=== PATIENT | male | born 1935 | race Caucasian/White ===

== ENCOUNTER 2016-05-18 09:23 | Inpatient (IN) | payer MEDICARE, OTHER ==
[~2016-05-18 09:23] MED LIST: ATENOLOL50 MG; AVANDIA4 MG; ECOTRIN325 MG; FELODIPINE ER5 MG; FUROSEMIDE20 MG; GLYBURIDE2.5 MG; LISINOPRIL40 MG; POTASSIUM CHLO10 MEQ; STOOL SOFTENER100 MG; ZETIA10 MG; ZOCOR80 MG
[2016-05-18] MEDS ORDERED: ASPIRIN EC81 MG PO (09:48)
[2016-05-18] MEDS ORDERED: VITAMIN D1000 UNI3 PO (09:48)
[2016-05-18] MEDS ORDERED: NAMENDA10 M1 PO (09:49)
[2016-05-18] MEDS ORDERED: ARICEPT10 M2 PO (09:49)
[2016-05-18] MEDS ORDERED: GLYBURIDE PO (09:50)
[2016-05-18] MEDS ORDERED: POTASSIUM CHLO10 ME2 PO (09:51)
[2016-05-18] MEDS ORDERED: ICAPS TABLET1 EACH PO (09:51)
[2016-05-18] MEDS ORDERED: FISH OIL 1,0001 EA10 PO (09:51)
[2016-05-18] MEDS ORDERED: PRAVASTATIN SOD20 M1 PO (09:52)
[2016-05-18] MEDS ORDERED: VITAMIN B12 PO (09:52)
[2016-05-18] MEDS ORDERED: LABETALOL HCL100 M1 PO (09:53)
[2016-05-18] MEDS ORDERED: PRINIVIL20 M1 PO (09:53)
[2016-05-18] MEDS ORDERED: LASIX40 M1 PO (09:53)
[2016-05-18] MEDS ORDERED: GLUCOPHAGE500 M3 PO (09:54)
[2016-05-18] MEDS ORDERED: TYLENOL325 M2 PO (09:54)
[2016-05-18 10:29] LABS: BASO % 0.1 % (0-2); EOS % 0.1 % (0-7); HCT-HEMATOCRIT 28.9 % (36.0-53.5); HGB-HEMOGLOBIN 9.3 gm/dl (13.5-17.0); IMMATURE GRANULOCYTES ABSOLUTE 0.03 tho/cmm (0-0.03); IMMATURE GRANULOCYTES PERCENT 0.3 % (0-0.3); LYMPH % 5.1 % (20-45); LYMPH ABSOLUTE COUNT 0.6 tho/cmm (0.8-4.5); MCH (MEAN CORPUSCULAR HGB) 26.1 pg (28.0-32.0); MCHC MEAN CORPUSCULAR HGB CONC 32.2 % (32.0-36.0); MEAN PLATELET VOLUME 9.3 cmc (9.4-12.4); MONO % 13.1 % (0-12); MONOCYTE ABSOLUTE COUNT 1.5 tho/cmm (0.0-1.2); NEUTROPHIL ABSOLUTE COUNT 9.3 tho/cmm (1.6-8.0); NEUTROPHIL-AUTOMATED 9.3 tho/cmm (1.6-8.0); NEUTROPHILS % 81.3 % (40-80); PLATELET COUNT 158 tho/cmm (150-450); RED BLOOD COUNT 3.57 mil/cmm (4.40-5.70); RED CELL DISTRIBUTION WIDTH 15.7 % (12.4-16.4); WHITE BLOOD COUNT 11.5 tho/cmm (4.0-10.0)
[2016-05-18 10:55] LABS: ALB/GLOB RATIO 0.8 (0.8-2.0); ALBUMIN 3.3 g/dl (3.5-5.0); ALKALINE PHOSPHATASE 78 U/L (33-138); ALT/SGPT 16 U/L (12-78); ANION GAP 15 mmol/L (0-20); AST/SGOT 22 U/L (10-40); BLOOD UREA NITROGEN 35 mg/dl (6-24); CALCIUM 8.6 mg/dl (8.5-10.5); CARBON DIOXIDE-VENOUS 23 mmol/L (22-32); CHLORIDE 103 mmol/l (96-110); CREATININE 1.22 mg/dl (0.60-1.30); GLUCOSE 155 mg/dL (70-110); POTASSIUM 3.9 mmol/L (3.7-5.1); SODIUM 137 mmol/L (135-145); eGFR VALUE FOR BLACK 63 mL/Min
[2016-05-18 11:14] LABS: PROCALCITONIN 0.86 ng/ml (0.05-0.09)
[2016-05-18] MEDS ORDERED: [UNRECOGNIZED DRUG - REMARK] (11:37)
[2016-05-18 14:04] LABS: URINE BILIRUBIN NEGATIVE (NEG); URINE BLOOD SMALL (NEG); URINE GLUCOSE (UA) NEGATIVE (NEG); URINE KETONE MODERATE (NEG); URINE LEUKOCYTE ESTERASE NEGATIVE (NEG); URINE NITRITE NEGATIVE (NEG); URINE PROTEIN SMALL (NEG); URINE SPECIFIC GRAVITY 1.015 (1.003-1.030)
[2016-05-18 14:04] LABS: INR 1.1 INR (0.9-1.1); PROTHROMBIN TIME 12.9 SECONDS (9.0-13.6)
[2016-05-18 14:05] LABS: URINE APPEARANCE CLEAR; URINE COLOR YELLOW
[2016-05-18 14:13] LABS: URINE AMORPHOUS 1+; URINE EPITHELIAL CELLS 0 /[HPF] (0-10); URINE RBC 0 /[HPF] (0-5); URINE WBC 0 /[HPF] (0-5)
[2016-05-18 16:23] LABS: ABG CO2 ARTERIAL 24 mmol/L (21-27); ARTERIAL BLD GAS O2 SATURATION 88 % (95-98); ARTERIAL BLOOD GAS PCO2 33 mmHg (32-45); ARTERIAL PO2 53 mmHg (70-100); BICARBONATE 23 mmol/L (21-28); BLOOD GAS BASE EXCESS 0 mM/L (-/+3); PH 7.46 Units (7.35-7.45)
--- NOTE | 2016-05-18 17:41 | NUR ---
1630 UPON ARRIVAL TO UNIT PATIENT WAS DYSPNEIC WITH WHEEZING AUSCULTATED THROUGHOUT, CALLED FOR RESPIRATORY TO PERFORM NEBULIZER TREATMENT, RESPIRATORY CONFIRMED THAT HE WAS VERY DYSPNEIC AND UNABLE TO MOVE AIR ADEQUATELY, PERFORMED NEBS X2 WITH NO RELIEF. PATIENT BECOMING AGITATED AND TRYING TO CLIMB OUT OF BED. RESPIRATORY RATE UPON ARRIVAL TO UNIT WAS AT A RATE OF 30 WITH SIMPLE MASK ON A 5L SATS AT 90%. CALLED DR MELTON TO UPDATE HIM ON PATIENTS STATUS. ORDER TO MOVE PATIENT TO PCU, WITH LASIX 40MG IV TO BE GIVEN PRIOR TO TRANSFER AND CONSULT PULMONARY, STAT ABG, LASIX IV WAS GIVEN HERE AT BEDSIDE, ABG DRAWN AT BEDSIDE, PULMONARY CALLED AND ORDERED METHLYPREDNISILONE 80MG IV Q8 TO BE GIVEN. WROTE ORDER, AND CALLED REPORT TO THE NURSE TAKING ROOM 352. PATIENTS FAMILY IS AT BEDSIDE AND AWARE OF TRANSFER. PATIENT IS CONFUSED BUT FAMILY SAYS HE HAS BASELINE DEMENTIA, VERY AGITATED TRYING TO PULL AT LINES, AND VERY DYSPNEIC AND WHEEZING THROUGHOUT, TRANSFERRED TO ROOM 352 AND WAS RECEPTED BY THE AID AND RN. PASSED ON REPORT. PATIENT STABLE UPON ARRIVAL WITH FAMILY AT BEDSIDE.
[2016-05-19 06:05] LABS: HCT-HEMATOCRIT 29.2 % (36.0-53.5); HGB-HEMOGLOBIN 9.5 gm/dl (13.5-17.0); IMMATURE GRANULOCYTES ABSOLUTE 0.02 tho/cmm (0-0.03); IMMATURE GRANULOCYTES PERCENT 0.4 % (0-0.3); LYMPH % 8.4 % (20-45); LYMPH ABSOLUTE COUNT 0.5 tho/cmm (0.8-4.5); MCH (MEAN CORPUSCULAR HGB) 26.1 pg (28.0-32.0); MCHC MEAN CORPUSCULAR HGB CONC 32.5 % (32.0-36.0); MCV (MEAN CELL VOLUME) 80.2 fl (82.0-96.0); MEAN PLATELET VOLUME 8.9 cmc (9.4-12.4); MONO % 5.1 % (0-12); MONOCYTE ABSOLUTE COUNT 0.3 tho/cmm (0.0-1.2); NEUTROPHIL ABSOLUTE COUNT 4.7 tho/cmm (1.6-8.0); NEUTROPHIL-AUTOMATED 4.7 tho/cmm (1.6-8.0); NEUTROPHILS % 86.1 % (40-80); PLATELET COUNT 171 tho/cmm (150-450); RED BLOOD COUNT 3.64 mil/cmm (4.40-5.70)
[2016-05-19 06:14] LABS: WHITE BLOOD COUNT 5.5 tho/cmm (4.0-10.0)
[2016-05-19 06:23] LABS: ANION GAP 15 mmol/L (0-20); BLOOD UREA NITROGEN 33 mg/dl (6-24); CALCIUM 8.5 mg/dl (8.5-10.5); CARBON DIOXIDE-VENOUS 22 mmol/L (22-32); CHLORIDE 108 mmol/l (96-110); CREATININE 1.25 mg/dl (0.60-1.30); GLUCOSE 204 mg/dL (70-110); POTASSIUM 3.7 mmol/L (3.7-5.1); SODIUM 141 mmol/L (135-145); eGFR VALUE FOR BLACK 61 mL/Min
[2016-05-19 06:26] LABS: C-REACTIVE PROTEIN 24.5 mg/dl (0-0.9)
[2016-05-19 08:02] LABS: ESR-ERYTHROCYTE SED RATE 60 mm/hr (0-20)
--- NOTE | 2016-05-19 21:36 | NUR ---
PO MEDS GIVEN FOR 2100, CRUSHED IN APPLE SAUCE. PATIENT SWALLOWED. FOLLOWED ALL COMMANDS. HE WAS AWAKE AND INTERACTIVE. VERY FORGETFUL. PATIENT DID NOT COUGH ON MEDS AND SWALLOWED WELL.
[2016-05-20 06:33] LABS: HCT-HEMATOCRIT 30.1 % (36.0-53.5); HGB-HEMOGLOBIN 9.8 gm/dl (13.5-17.0); IMMATURE GRANULOCYTES ABSOLUTE 0.03 tho/cmm (0-0.03); IMMATURE GRANULOCYTES PERCENT 0.4 % (0-0.3); LYMPH % 8.5 % (20-45); LYMPH ABSOLUTE COUNT 0.6 tho/cmm (0.8-4.5); MCH (MEAN CORPUSCULAR HGB) 26.2 pg (28.0-32.0); MCHC MEAN CORPUSCULAR HGB CONC 32.6 % (32.0-36.0); MCV (MEAN CELL VOLUME) 80.5 fl (82.0-96.0); MEAN PLATELET VOLUME 9.1 cmc (9.4-12.4); MONO % 11.6 % (0-12); MONOCYTE ABSOLUTE COUNT 0.9 tho/cmm (0.0-1.2); NEUTROPHIL ABSOLUTE COUNT 5.9 tho/cmm (1.6-8.0); NEUTROPHIL-AUTOMATED 5.9 tho/cmm (1.6-8.0); NEUTROPHILS % 79.5 % (40-80); PLATELET COUNT 207 tho/cmm (150-450); RED BLOOD COUNT 3.74 mil/cmm (4.40-5.70); RED CELL DISTRIBUTION WIDTH 16.1 % (12.4-16.4); WHITE BLOOD COUNT 7.4 tho/cmm (4.0-10.0)
[2016-05-20 06:46] LABS: ANION GAP 12 mmol/L (0-20); BLOOD UREA NITROGEN 36 mg/dl (6-24); CALCIUM 8.6 mg/dl (8.5-10.5); CARBON DIOXIDE-VENOUS 26 mmol/L (22-32); CHLORIDE 112 mmol/l (96-110); CREATININE 1.13 mg/dl (0.60-1.30); GLUCOSE 249 mg/dL (70-110); POTASSIUM 3.6 mmol/L (3.7-5.1); SODIUM 146 mmol/L (135-145); eGFR VALUE FOR BLACK 69 mL/Min
[2016-05-21 05:48] LABS: EOS % 0.9 % (0-7); EOSINOPHIL ABSOLUTE COUNT 0.1 tho/cmm (0.0-0.7); HCT-HEMATOCRIT 30.9 % (36.0-53.5); IMMATURE GRANULOCYTES ABSOLUTE 0.06 tho/cmm (0-0.03); IMMATURE GRANULOCYTES PERCENT 0.6 % (0-0.3); LYMPH ABSOLUTE COUNT 1.4 tho/cmm (0.8-4.5); MCH (MEAN CORPUSCULAR HGB) 26.2 pg (28.0-32.0); MCHC MEAN CORPUSCULAR HGB CONC 32.4 % (32.0-36.0); MCV (MEAN CELL VOLUME) 80.9 fl (82.0-96.0); MEAN PLATELET VOLUME 8.9 cmc (9.4-12.4); MONO % 11.6 % (0-12); MONOCYTE ABSOLUTE COUNT 1.1 tho/cmm (0.0-1.2); NEUTROPHIL ABSOLUTE COUNT 6.9 tho/cmm (1.6-8.0); NEUTROPHIL-AUTOMATED 6.9 tho/cmm (1.6-8.0); NEUTROPHILS % 71.9 % (40-80); PLATELET COUNT 219 tho/cmm (150-450); RED BLOOD COUNT 3.82 mil/cmm (4.40-5.70); RED CELL DISTRIBUTION WIDTH 16.1 % (12.4-16.4); WHITE BLOOD COUNT 9.6 tho/cmm (4.0-10.0)
[2016-05-21 05:57] LABS: ANION GAP 8 mmol/L (0-20); BLOOD UREA NITROGEN 34 mg/dl (6-24); CALCIUM 8.3 mg/dl (8.5-10.5); CARBON DIOXIDE-VENOUS 29 mmol/L (22-32); CHLORIDE 110 mmol/l (96-110); GLUCOSE 171 mg/dL (70-110); POTASSIUM 3.4 mmol/L (3.7-5.1); SODIUM 144 mmol/L (135-145); eGFR VALUE FOR BLACK 72 mL/Min
== END 2016-05-21 15:25 | DRG 193 ==
LOC: EDMED 09:23 → EMR2 13:02 → 5WE 15:21 → PCUA 16:40
PROVIDERS: Emergency Medicine; ADMIT Family Medicine
PROC: 5A09357 Assistance with Respiratory Ventilation, Less than 24 Consecutive Hours, Continuous Positive Airway Pressure (ICD-10-PCS; principal; 2016-05-18)
DX: J18.9 Pneumonia, unspecified organism (principal); G93.41 Metabolic encephalopathy; J96.01 Acute respiratory failure with hypoxia; I50.22 Chronic systolic (congestive) heart failure; I13.0 Hypertensive heart and chronic kidney disease with heart failure and stage 1 through stage 4 chronic kidney disease, or unspecified chronic kidney disease; F03.90 Unspecified dementia, unspecified severity, without behavioral disturbance, psychotic disturbance, mood disturbance, and anxiety; Z66 Do not resuscitate; Z87.891 Personal history of nicotine dependence; Z51.5 Encounter for palliative care; Z79.82 Long term (current) use of aspirin; I25.10 Atherosclerotic heart disease of native coronary artery without angina pectoris; M19.90 Unspecified osteoarthritis, unspecified site; N40.0 Benign prostatic hyperplasia without lower urinary tract symptoms; Z95.5 Presence of coronary angioplasty implant and graft; Z79.84 Long term (current) use of oral hypoglycemic drugs; E78.5 Hyperlipidemia, unspecified; N52.9 Male erectile dysfunction, unspecified; E11.22 Type 2 diabetes mellitus with diabetic chronic kidney disease; N18.9 Chronic kidney disease, unspecified
CPT/HCPCS: J0456; J0696; J1630; J1650; J1815; J1940; J1956; J2270; J2930; J7030; J7050